=== PATIENT | female | born 1980 | race Caucasian/White ===

== ENCOUNTER 2018-03-19 15:08 | Emergency (ER) | payer SELFPAY ==
[~2018-03-19] VITALS: Ht 157.5 cm; Wt 72.0 kg
[2018-03-19] MEDS ORDERED: KETOROLAC 30MG/ML VIAL IM STA (20:16)
[2018-03-19] MEDS ORDERED: ONDANSETRON 4MG ODT PO STA (20:16)
[2018-03-19] MEDS ORDERED: SODIUM CHLORIDE 0.9% 1,000 ML IV ONE (20:19)
[2018-03-19] MEDS ORDERED: ONDANSETRON HCL 4MG/2ML VIAL IV STA (20:19)
[2018-03-19] MEDS ORDERED: KETOROLAC 30MG/ML VIAL IV STA (20:19)
[2018-03-19 20:38] LABS: BASOPHILS % 1.1 % (0.0-2.0); EOSINOPHILS % 1.3 % (0.0-5.0); HEMATOCRIT. 38.5 % (36.0-48.0); HEMOGLOBIN. 13.3 g/dL (12.0-16.0); LYMPHOCYTES % 15.5 % (20.0-50.0); MEAN CORPUSCULAR HEMOGLOBIN 32.8 pg (28.0-32.0); MEAN PLATELET VOLUME 7.7 fl (7.4-10.4); MONOCYTES % 6.4 % (2.0-8.0); NEUTROPHILS % 75.7 % (40.0-76.0); PLATELET 376 x1000/uL (130-400); RED BLOOD CELL COUNT 4.05 mill/uL (4.2-5.4); RED CELL DISTRIBUTION WIDTH 13.8 % (11.6-14.6)
[2018-03-19 20:44] LABS: CHLORIDE 105 mEq/L (98-107)
[2018-03-19 20:56] LABS: CLARITY URINE CLEAR (CLEAR); COLOR URINE YELLOW (YELLOW); KETONES URINE 2+ (NEGATIVE); LEUKOCYTE ESTERASE URINE 1+ (NEGATIVE); NITRITE URINE NEGATIVE (NEGATIVE); OCCULT BLOOD URINE NEGATIVE (NEGATIVE); PROTEIN URINE NEGATIVE (NEGATIVE); UROBILINOGEN URINE 0.2 E.U./dL (0.2-1.0)
[2018-03-19 22:49] VITALS: BP 144/81
== END 2018-03-19 22:45 | disposition home or self-care (01) ==
LOC: ER 15:08
DX: M54.9 Dorsalgia, unspecified (principal); N39.0 Urinary tract infection, site not specified; F17.200 Nicotine dependence, unspecified, uncomplicated
CPT/HCPCS: 36415; 76770; 80053; 81003; 81025; 85025; 96374; 96375; 99285; J1885; J2405; J7030; Z7610

== ENCOUNTER 2021-07-03 18:53 | Inpatient (IN) | payer SELFPAY ==
[~2021-07-03] VITALS: Ht 157.5 cm; Wt 62.1 kg
[2021-07-03] MEDS ORDERED: LORAZEPAM 2MG/ML CPJ IV ONE (21:45)
[2021-07-03] MEDS ORDERED: ACETAMINOPHEN 325MG TABLET PO ONE (21:45)
[2021-07-03] MEDS ORDERED: FOLIC ACID 1 MG, THIAMINE HCL 100 MG, MVI, ADULT NO.1 10 ML in DEXTROSE 5% WATER 1,000 ML IV ONE (21:45)
[2021-07-03 22:34] LABS: HEMATOCRIT. 37.4 % (36.0-48.0); MEAN CORPUSCULAR HEMOGLOBIN 33.9 pg (28.0-32.0); MEAN CORPUSCULAR VOLUME 97.7 fL (81.0-99.0); MEAN PLATELET VOLUME 7.9 fl (7.4-10.4); PLATELET 113 x1000/uL (130-400); RED BLOOD CELL COUNT 3.83 mill/uL (4.2-5.4); RED CELL DISTRIBUTION WIDTH 14.2 % (11.6-14.6)
[2021-07-03 22:35] LABS: CLARITY URINE CLOUDY (CLEAR); COLOR URINE ORANGE (YELLOW); KETONES URINE TRACE (NEGATIVE); LEUKOCYTE ESTERASE URINE 2+ (NEGATIVE); NITRITE URINE POSITIVE (NEGATIVE); OCCULT BLOOD URINE 3+ (NEGATIVE); PH URINE 7.5 (4.5-8.0); PROTEIN URINE 2+ (NEGATIVE); SPECIFIC GRAVITY URINE 1.016 (1.005-1.030)
[2021-07-03 22:39] LABS: CHLORIDE 100 mEq/L (98-107)
[2021-07-03 22:44] LABS: ETHANOL BLOOD < 10 mg/dL
[2021-07-03 22:54] LABS: METHADONE URINE SCREEN NEGATIVE (NEGATIVE); OPIATES URINE SCREEN NEGATIVE (NEGATIVE)
[2021-07-03 22:55] LABS: *AMPHETAMINES SCREEN URINE NEGATIVE (NEGATIVE); *BARBITURATES SCREEN URINE NEGATIVE (NEGATIVE); *BENZODIAZEPINES SCREEN URINE NEGATIVE (NEGATIVE); *COCAINE SCREEN URINE NEGATIVE (NEGATIVE); CANNABINOID URINE SCREEN NEGATIVE (NEGATIVE); PHENCYCLIDINE URINE SCREEN NEGATIVE (NEGATIVE)
[2021-07-03 23:13] LABS: PLATELET ESTIMATE DECREASED
[2021-07-03] MEDS ORDERED: CEFTRIAXONE 1 G PREMIX 50 ML IV ONE (23:15)
[2021-07-04 00:40] VITALS: BP 168/92
[2021-07-04] MEDS ORDERED: DOCUSATE SODIUM 100MG CAPSULE PO PRN (01:30)
[2021-07-04] MEDS ORDERED: MAGNESIUM/ALUMINUM HYDROXIDE/SIMETHICONE 30ML UDC PO PRN (01:30)
[2021-07-04] MEDS ORDERED: CLONIDINE 0.1MG TABLET PO PRN (01:30)
[2021-07-04] MEDS ORDERED: GUAIFENESIN 200MG/10ML SUGAR FREE UDC PO PRN (01:30)
[2021-07-04] MEDS ORDERED: ACETAMINOPHEN 325MG TABLET PO PRN (01:30)
[2021-07-04] MEDS ORDERED: HYDROMORPHONE HCL/PF 2MG/ML CPJ IV PRN (01:30)
[2021-07-04] MEDS ORDERED: LORAZEPAM 2MG/ML CPJ IV PRN (01:30)
[2021-07-04] MEDS ORDERED: ONDANSETRON HCL 4MG/2ML INJ IV PRN (01:30)
[2021-07-04] MEDS ORDERED: AMLODIPINE 10MG TABLET PO SCH (02:00)
[2021-07-04] MEDS ORDERED: NALOXONE HCL 0.4MG/ML VIAL IV PRN (02:00)
[2021-07-04] MEDS ORDERED: SODIUM CHLORIDE 0.45% 1,000 ML IV SCH (02:00)
[2021-07-04 04:00] VITALS: BP 121/83
[2021-07-04] MEDS ORDERED: LEVOFLOXACIN 500MG PREMIX 100 ML IV SCH (04:00)
[2021-07-04 08:03] VITALS: BP 113/77
[2021-07-04] MEDS ORDERED: MULTIVITAMINS,THER W-MINERALS TABLET PO SCH (09:00)
[2021-07-04] MEDS ORDERED: THIAMINE HCL 100MG TABLET PO SCH (09:00)
[2021-07-04] MEDS ORDERED: FOLIC ACID 1MG TABLET PO SCH (09:00)
[2021-07-04] MEDS ORDERED: PNEUMOCOCCAL 23-VAL P-SAC VAC 0.5 ML IM ONE (10:00)
[2021-07-04] MEDS ORDERED: METO-539 PO (10:56)
[2021-07-04 12:00] VITALS: BP 116/71
[2021-07-04 12:16] VITALS: BP 113/77
== END 2021-07-04 18:06 | disposition home or self-care (01) | DRG 204 ==
LOC: ER 18:53 → 6WST 23:08 → ENRESERV 07-04 00:11
PROVIDERS: ADMIT Hospitalist; ATTEND Hospitalist
DX: R55 Syncope and collapse (principal); F10.239 Alcohol dependence with withdrawal, unspecified; Y90.9 Presence of alcohol in blood, level not specified; N39.0 Urinary tract infection, site not specified; Z20.822 Contact with and (suspected) exposure to COVID-19; Z87.440 Personal history of urinary (tract) infections
CPT/HCPCS: 36415; 71045; 80053; 80305; 80320; 81003; 83605; 83735; 83880; 84484; 85025; 87426; 90732; 93005; 99285; J0696; J1956; J2060; J3411; J3490; J7070; G0480

== ENCOUNTER 2021-11-03 22:51 | Emergency (ER) | payer SELFPAY ==
[~2021-11-03] VITALS: Ht 167.6 cm; Wt 70.0 kg
[~2021-11-03 22:51] MED LIST: METO-539 PO
[2021-11-03] MEDS ORDERED: ONDANSETRON 4MG ODT PO ONE (23:15)
[2021-11-03] MEDS ORDERED: LORAZEPAM 1MG TABLET PO ONE (23:15)
[2021-11-04 00:32] LABS: EOSINOPHILS % 0.1 % (0.0-5.0); HEMATOCRIT. 37.8 % (36.0-48.0); HEMOGLOBIN. 12.5 g/dL (12.0-16.0); LYMPHOCYTES % 13.8 % (20.0-50.0); MEAN CORPUSCULAR HEMOGLOBIN 33.3 pg (28.0-32.0); MEAN CORPUSCULAR VOLUME 100.5 fL (81.0-99.0); MEAN PLATELET VOLUME 7.3 fl (7.4-10.4); MONOCYTES % 13.9 % (2.0-8.0); NEUTROPHILS % 71.2 % (40.0-76.0); PLATELET 80 x1000/uL (130-400); RED BLOOD CELL COUNT 3.76 mill/uL (4.2-5.4); RED CELL DISTRIBUTION WIDTH 14.1 % (11.6-14.6)
[2021-11-04 00:39] LABS: CHLORIDE 101 mEq/L (98-107)
[2021-11-04 00:41] LABS: HCG SCREEN NEGATIVE
[2021-11-04 00:43] LABS: ETHANOL BLOOD < 10 mg/dL
[2021-11-04 01:06] LABS: *AMPHETAMINES SCREEN URINE NEGATIVE (NEGATIVE); *BARBITURATES SCREEN URINE NEGATIVE (NEGATIVE); *BENZODIAZEPINES SCREEN URINE NEGATIVE (NEGATIVE); *COCAINE SCREEN URINE NEGATIVE (NEGATIVE); METHADONE URINE SCREEN NEGATIVE (NEGATIVE); OPIATES URINE SCREEN NEGATIVE (NEGATIVE)
[2021-11-04 01:07] LABS: CANNABINOID URINE SCREEN NEGATIVE (NEGATIVE); PHENCYCLIDINE URINE SCREEN NEGATIVE (NEGATIVE)
[2021-11-04] MEDS ORDERED: LORAZEPAM 1MG TABLET PO ONE (01:45)
[2021-11-04] MEDS ORDERED: ONDANSETRON 4MG ODT PO ONE (01:45)
[2021-11-04] MEDS ORDERED: ONDA4TAB5 MT (02:48)
[2021-11-04 03:30] VITALS: BP 144/86
== END 2021-11-04 03:45 | disposition home or self-care (01) ==
LOC: ER 22:51
DX: F10.239 Alcohol dependence with withdrawal, unspecified (principal); R00.2 Palpitations; F41.8 Other specified anxiety disorders; R11.2 Nausea with vomiting, unspecified; Y90.0 Blood alcohol level of less than 20 mg/100 ml
CPT/HCPCS: 36415; 80053; 80305; 80320; 83690; 84703; 85025; 99284; Q0162; G0480

== ENCOUNTER 2022-06-05 12:30 | Emergency (ER) | payer SELFPAY ==
[~2022-06-05] VITALS: Ht 162.6 cm; Wt 63.0 kg
[~2022-06-05 12:30] MED LIST changes: +ONDA4TAB5 MT
[2022-06-05] MEDS ORDERED: DIAZEPAM 5 MG TABLET PO ONE (13:45)
[2022-06-05 15:27] LABS: HEMATOCRIT. 33.9 % (36.0-48.0); HEMOGLOBIN. 11.4 g/dL (12.0-16.0); MEAN CORPUSCULAR HEMOGLOBIN 33.1 pg (28.0-32.0); MEAN CORPUSCULAR VOLUME 98.5 fL (81.0-99.0); MEAN PLATELET VOLUME 8.5 fl (7.4-10.4); PLATELET 66 x1000/uL (130-400); RED BLOOD CELL COUNT 3.45 mill/uL (4.2-5.4); RED CELL DISTRIBUTION WIDTH 13.8 % (11.6-14.6)
[2022-06-05] MEDS ORDERED: DIAZEPAM 5 MG TABLET PO NR (15:30)
[2022-06-05 15:33] LABS: CHLORIDE 98 mEq/L (98-107)
[2022-06-05 15:40] LABS: ETHANOL BLOOD < 10 mg/dL
[2022-06-05] MEDS ORDERED: CHLO25CA10 MT (15:53)
[2022-06-05 16:36] VITALS: BP 130/79
[2022-06-05 18:09] LABS: PLATELET ESTIMATE DECREASED
== END 2022-06-05 17:51 | disposition home or self-care (01) ==
LOC: ER 12:30
DX: F10.239 Alcohol dependence with withdrawal, unspecified (principal); Y90.0 Blood alcohol level of less than 20 mg/100 ml; Z87.440 Personal history of urinary (tract) infections
CPT/HCPCS: 36415; 80053; 80320; 82962; 85025; 99284; G0480

== ENCOUNTER 2022-10-17 19:54 | Inpatient (IN) | payer MEDICAID ==
[~2022-10-17] VITALS: Ht 160 cm; Wt 62.6 kg
[~2022-10-17 19:54] MED LIST changes: +CHLO25CA10 MT
[2022-10-17] MEDS ORDERED: ONDANSETRON HCL 4MG/2ML INJ IV ONE (23:45)
[2022-10-17] MEDS ORDERED: SODIUM CHLORIDE 0.9% 1,000 ML IV ONE (23:45)
[2022-10-17] MEDS ORDERED: FAMOTIDINE 20MG/2ML VIAL IV ONE (23:45)
[2022-10-17] MEDS ORDERED: LORAZEPAM 2MG/ML CPJ IV ONE (23:45)
[2022-10-18 00:15] LABS: HEMATOCRIT. 35.3 % (36.0-48.0); HEMOGLOBIN. 11.8 g/dL (12.0-16.0); MEAN CORPUSCULAR HEMOGLOBIN 33.8 pg (28.0-32.0); MEAN CORPUSCULAR VOLUME 100.9 fL (81.0-99.0); MEAN PLATELET VOLUME 7.5 fl (7.4-10.4); PLATELET 60 x1000/uL (130-400); RED CELL DISTRIBUTION WIDTH 14.7 % (11.6-14.6)
[2022-10-18 00:43] LABS: CHLORIDE 100 mEq/L (98-107)
[2022-10-18] MEDS ORDERED: POTASSIUM CHLORIDE INJ 30 MEQ in DEXT 5%/0.9% NACL 1,000 ML IV NR (02:00)
[2022-10-18] MEDS ORDERED: CHLORDIAZEPOXIDE 25MG CAPSULE PO ONE (03:00)
[2022-10-18] MEDS ORDERED: LORAZEPAM 2MG/ML CPJ IV ONE (03:30)
[2022-10-18 04:45] LABS: PLATELET ESTIMATE DECREASED
[2022-10-18] MEDS ORDERED: MAGNESIUM/ALUMINUM HYDROXIDE/SIMETHICONE 30ML UDC PO PRN (09:45)
[2022-10-18] MEDS ORDERED: ONDANSETRON HCL 4MG/2ML INJ IV PRN (09:45)
[2022-10-18] MEDS ORDERED: ACETAMINOPHEN 650MG/20.3ML UDC GT PRN ×2 (09:45)
[2022-10-18] MEDS ORDERED: POTASSIUM CHLORIDE INJ 40 MEQ in DEXT 5% WATER 250 ML IV ONE (09:45)
[2022-10-18] MEDS: KCL 20MEQ/100ML X 2 FOR TOTAL KCL 40MEQ/200ML IV SCH ×2 (11:00→13:00)
[2022-10-18 11:26] VITALS: BP 139/89
[2022-10-18 12:00] VITALS: BP 122/75
[2022-10-18] MEDS ORDERED: INFLUENZA VACCINE 05/PF 0.5 ML SYRINGE IM ONE (13:00)
[2022-10-18] MEDS: CHLORDIAZEPOXIDE 25MG CAPSULE PO SCH ×2 (13:19→20:39)
[2022-10-18] MEDS: FAMOTIDINE 20MG/2ML VIAL IV SCH ×2 (13:19→20:39)
[2022-10-18] MEDS: MVI, ADULT NO.1 10 ML, FOLIC ACID 1 MG, THIAMINE HCL 100 MG in SODIUM CHLORIDE 0.9% 1,0... IV SCH ×8 (15:31→20:50)
[2022-10-18 16:00] VITALS: BP 118/79
[2022-10-18] MEDS ORDERED: POTASSIUM CHLORIDE 20MEQ TABLET SR PO NR (17:45)
[2022-10-18 20:00] VITALS: BP 114/75
[2022-10-18] MEDS: LORAZEPAM 2MG/ML CPJ IV PRN (20:39)
[2022-10-19] VITALS: BP 113/74
[2022-10-19 04:00] VITALS: BP 124/72
[2022-10-19] MEDS: SODIUM CHLORIDE 0.9% 1,000 ML IV SCH ×2 (05:34→16:32)
[2022-10-19] MEDS: CHLORDIAZEPOXIDE 25MG CAPSULE PO SCH ×3 (05:36→21:08)
[2022-10-19 06:25] LABS: BASOPHILS % 0.8 % (0.0-2.0); EOSINOPHILS % 0.9 % (0.0-5.0); HEMATOCRIT. 34.6 % (36.0-48.0); HEMOGLOBIN. 11.6 g/dL (12.0-16.0); MEAN CORPUSCULAR HEMOGLOBIN 33.8 pg (28.0-32.0); MEAN CORPUSCULAR VOLUME 100.7 fL (81.0-99.0); MEAN PLATELET VOLUME 8.8 fl (7.4-10.4); MONOCYTES % 13.8 % (2.0-8.0); NEUTROPHILS % 67.5 % (40.0-76.0); PLATELET 53 x1000/uL (130-400); RED BLOOD CELL COUNT 3.44 mill/uL (4.2-5.4); RED CELL DISTRIBUTION WIDTH 13.7 % (11.6-14.6)
[2022-10-19 08:00] VITALS: BP 145/96
[2022-10-19 08:23] LABS: CHLORIDE 108 mEq/L (98-107)
[2022-10-19 08:40] LABS: PHOSPHORUS 2.8 mg/dL (2.5-4.9)
[2022-10-19] MEDS: FAMOTIDINE 20MG/2ML VIAL IV SCH ×2 (11:58→21:08)
[2022-10-19] MEDS: POTASSIUM CHLORIDE 20MEQ TABLET SR PO SCH ×3 (11:59→15:26)
[2022-10-19 12:00] VITALS: BP 106/78
[2022-10-19 16:00] VITALS: BP 111/76
[2022-10-19 20:00] VITALS: BP 111/76
[2022-10-19] MEDS: DIPHENHYDRAMINE 50MG/ML VIAL IV PRN (22:35)
[2022-10-19] MEDS: LORAZEPAM 2MG/ML CPJ IV PRN (22:35)
[2022-10-20] VITALS: BP 118/70
[2022-10-20] MEDS: SODIUM CHLORIDE 0.9% 1,000 ML IV SCH (02:50)
[2022-10-20] MEDS: LORAZEPAM 2MG/ML CPJ IV PRN (02:50)
[2022-10-20] MEDS: DIPHENHYDRAMINE 50MG/ML VIAL IV PRN (03:53)
[2022-10-20 04:39] VITALS: BP 140/92
[2022-10-20] MEDS: CHLORDIAZEPOXIDE 25MG CAPSULE PO SCH (05:13)
[2022-10-20 08:00] VITALS: BP 120/80
[2022-10-20] MEDS: FAMOTIDINE 20MG/2ML VIAL IV SCH (08:56)
[2022-10-20 12:00] VITALS: BP 114/80
[2022-10-20 12:53] VITALS: BP 112/80
== END 2022-10-20 13:55 | disposition home or self-care (01) | DRG 775 ==
LOC: ER 19:54 → 7WST 10-18 04:22 → EDBEDREQ 10-18 04:28 → EDBEDREQTM 10-18 04:28 → ENRESERV 10-18 10:04
PROVIDERS: ADMIT Internal Medicine; ATTEND Internal Medicine
DX: F10.239 Alcohol dependence with withdrawal, unspecified (principal); E87.6 Hypokalemia; F41.0 Panic disorder [episodic paroxysmal anxiety]; Z20.822 Contact with and (suspected) exposure to COVID-19; Z82.49 Family history of ischemic heart disease and other diseases of the circulatory system
CPT/HCPCS: 36415; 80053; 80320; 83735; 84100; 85025; 87426; 90686; 99285; J1200; J2060; J2405; J3411; J3480; J3490; J7030; J7042; G0480

== ENCOUNTER 2023-04-27 20:34 | Emergency (ER) | payer MEDICAID ==
[~2023-04-27] VITALS: Ht 167.6 cm; Wt 68.0 kg
[2023-04-27 20:42] VITALS: BP 141/84; PULSE 121; RESP 16; TEMP 97.7; O2SAT 94
[2023-04-27] MEDS ORDERED: ONDANSETRON HCL 4MG/2ML INJ IV STA (23:27)
[2023-04-27] MEDS ORDERED: LORAZEPAM 2MG/ML CPJ IV STA (23:27)
[2023-04-27] MEDS ORDERED: SODIUM CHLORIDE 0.9% 1,000 ML IV ONE (23:30)
[2023-04-27 23:51] LABS: BASOPHILS % 0.6 % (0.0-2.0); EOSINOPHILS % 0.7 % (0.0-5.0); HEMATOCRIT. 37.4 % (36.0-48.0); HEMOGLOBIN. 12.5 g/dL (12.0-16.0); LYMPHOCYTES % 18.6 % (20.0-50.0); MEAN CORPUSCULAR HEMOGLOBIN 31.7 pg (28.0-32.0); MEAN CORPUSCULAR VOLUME 94.8 fL (81.0-99.0); MEAN PLATELET VOLUME 7.3 fl (7.4-10.4); MONOCYTES % 8.9 % (2.0-8.0); NEUTROPHILS % 71.2 % (40.0-76.0); PLATELET 51 x1000/uL (130-400); RED BLOOD CELL COUNT 3.94 mill/uL (4.2-5.4); RED CELL DISTRIBUTION WIDTH 15.6 % (11.6-14.6)
[2023-04-28 00:11] LABS: CHLORIDE 105 mEq/L (98-107)
[2023-04-28 00:37] LABS: ETHANOL BLOOD 451 mg/dL (-10)
== END 2023-04-28 01:07 | disposition home or self-care (01) ==
LOC: ER 20:34
DX: F10.20 Alcohol dependence, uncomplicated (principal); Y90.8 Blood alcohol level of 240 mg/100 ml or more
CPT/HCPCS: 36415; 80053; 80320; 85025; 96361; 96374; 96375; 99284; J2060; J2405; J7030; G0480